=== PATIENT | female | born 2005 | race Caucasian/White ===

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

== ENCOUNTER 2024-07-29 23:19 | Inpatient (IN) ==
[2024-07-29] MEDS: Oxytocin in NS 30,000 MILLI.UNIT/500 ML BAG IV ONE (23:50)
[2024-07-30 00:08] LABS: Hematocrit 35.5 % (35-45); Mean Corpuscular Hemoglobin 27.3 pg (27-33); Mean Corpuscular Hgb Conc 33.8 g/dL (31-36); Mean Corpuscular Volume 80.8 fL (80-97); Mean Platelet Volume 8.1 fL (7.5-11.2); Platelet Count 317 10^3/uL (150-450); Red Blood Count 4.39 10^6/uL (3.63-4.92); Red Cell Distribution Width 14.1 % (12-17); White Blood Count 13.1 10^3/uL (3.8-11.8)
[2024-07-30] MEDS ORDERED: Lidocaine 1% VIAL 10 MG/ML 30 ML VIAL INJ PRN (00:30)
[2024-07-30] MEDS ORDERED: Glycerin ADULT 2.4 gm SUPP PR PRN (01:17)
[2024-07-30] MEDS: Witch Hazel PAD JAR TOPICAL PRN (01:58)
[2024-07-30] MEDS: Dibucaine 1% OINT 28.35 GM TUBE PR PRN (01:58)
[2024-07-30] MEDS ORDERED: Lactated Ringers 1000 ml BAG 1,000 ML IV SCH (02:00)
[2024-07-30 03:14] LABS: Urine Benzodiazepine Screen None Detected (None Detect); Urine Cannabinoids Screen None Detected (None Detect); Urine Opiates Screen None Detected (None Detect)
[2024-07-30 03:22] LABS: Urine Appearance Turbid; Urine Bilirubin Negative (Negative); Urine Blood 3+ (Negative); Urine Glucose Negative (Negative); Urine Ketones 1+ (Negative); Urine Nitrite Negative (Negative); Urine Protein Trace (Negative); Urine Specific Gravity 1.011 (1.002-1.030); Urine Urobilinogen Negative (Negative); Urine pH 7.5 (5.0-8.0)
[2024-07-30 03:45] LABS: Urine Bacteria Absent /HPF (Absent); Urine Red Blood Cell 3+(>10/hpf) /HPF (0-Trace); Urine Squamous Epithelial Cell Present /HPF (Absent); Urine White Blood Cell 3+(>20/hpf) /HPF (0-Trace)
[2024-07-30 04:09] LABS: Urine Color Light-Red
[2024-07-30] MEDS: Lactated Ringers 1000 ml BAG 1,000 ML IV SCH (05:48)
[2024-07-30] MEDS: Lactated Ringers 1000 ml BAG 1,000 ML IV ONE (05:48)
[2024-07-30] MEDS: Buffered Lidocaine 1% SYRIN 1 ml INTRADERM ONE (05:49)
[2024-07-30] MEDS: Oxytocin 10 UNITS/ML 1 ML VIAL ONE (05:49)
[2024-07-30] MEDS: Oxytocin in NS 30,000 MILLI.UNIT/500 ML BAG IV SCH (05:49)
[2024-07-30 11:20] LABS: Hematocrit 30.9 % (35-45); Hemoglobin 10.4 g/dL (11.5-14.3); Mean Corpuscular Hemoglobin 27.1 pg (27-33); Mean Corpuscular Hgb Conc 33.6 g/dL (31-36); Mean Corpuscular Volume 80.5 fL (80-97); Mean Platelet Volume 7.9 fL (7.5-11.2); Platelet Count 267 10^3/uL (150-450); Red Blood Count 3.84 10^6/uL (3.63-4.92); Red Cell Distribution Width 13.9 % (12-17); White Blood Count 17.1 10^3/uL (3.8-11.8)
[2024-07-30 13:20] LABS: HIV 4th Generation Nonreactive (Nonreactive)
[2024-07-31 11:48] VITALS: BP 99/41
[2024-07-31] MEDS: Nicotine PATCH 7 MG/24 HR PATCH TRANSDERM SCH (11:55)
== END 2024-07-31 17:32 | disposition home or self-care (01) | DRG 560 ==
LOC: MCHOB 23:30
PROVIDERS: ADMIT Advanced Practice Midwife; ATTEND Advanced Practice Midwife